=== PATIENT | female | born 1995 | race African-American/Black ===

== ENCOUNTER 2017-09-30 14:06 | Emergency (ER) | payer SELFPAY ==
[~2017-09-30] VITALS: Ht 175.3 cm; Wt 98.9 kg
[2017-09-30 15:19] LABS: ABSOLUTE BASOPHIL COUNT 0.1 /CUMM (0.0-0.2); ABSOLUTE EOSINOPHIL COUNT 0.1 /CUMM (0.0-0.7); ABSOLUTE GRANULOCYTE CT 4.8 /CUMM (1.4-6.5); ABSOLUTE LYMPH COUNT 2.3 /CUMM (1.2-3.4); ABSOLUTE MONOCYTE COUNT 0.6 /CUMM (0.10-0.60); BASOPHIL % 0.9 % (0.0-2.0); EOSINOPHIL % 1.6 % (0-5); GRANULOCYTE % 60.7 % (42.2-75.2); HEMATOCRIT 39.4 % (37-47); MEAN CORPUSCULAR HGB 28.3 PG (27.0-31.0); MEAN CORPUSCULAR HGB CONC 32.5 G/DL (33.0-37.0); MEAN CORPUSCULAR VOLUME 87.1 FL (81.0-99.0); MEAN PLATELET VOLUME 6.9 FL (7.4-10.4); PLATELET COUNT 371 /CUMM (130-400); RBC DISTRIBUTION WIDTH 14.1 % (11.5-14.5); RED BLOOD CELL CT 4.52 /CUMM (4.20-5.40); WHITE BLOOD CELL COUNT 7.8 /CUMM (4.8-10.8)
--- NOTE | 2017-09-30 15:50 | ED GI/GU/ABDOMINAL COMPLAINT ---
History of Present Illness General Chief Complaint: Abdominal Pain/Flank Pain Stated Complaint: ABD PAIN SPOTING Source: patient Exam Limitations: no limitations Vital Signs & Intake/Output Vital Signs & Intake/Output Vital Signs Date Time Temp Pulse Resp B/P B/P Pulse O2 O2 Flow FiO2 Mean Ox Delivery Rate 09/30 1414 97.0 81 18 133/84 98 Room Air Allergies Coded Allergies: No Known Allergies (09/30/17) Reconcile Medications Ciprofloxacin HCl (Cipro) 500 MG TABLET 1 TAB PO BID UTI Metronidazole (Flagyl) 500 MG TABLET 1 TAB PO BID STD Triage Note: PT TO ER C/C ?STD C/C ODOR AND WHITE D/C COMING FROM VAGINA. PT HAD SPOTTING PERIOD 2 WEEKS AGO. Triage Nurses Notes Reviewed? yes ? N Is pt currently ? No Onset: Gradual Duration: constant Timing: recent history Quality/Severity: moderate Severity Numbers: 5 Radiation: no radiation HPI: Patient is a 22-year-old female who since emergency room with concerns of having unprotected sex approximately 2 weeks ago and has had a 4-5 day symptoms of dysuria and increased frequency of urination and malodorous white vaginal discharge and 1 day of mild intermittent vaginal spotting. Patient denies any fever chills abdominal pain nausea vomiting Patient does have a history of BV and states symptoms are very similar to previous episodes. Unknown partner having symptoms (Dylon Barrera) Past History Travel History Traveled to [place] past 21 day No Medical History Any Pertinent Medical History? none Surgical History Surgical History: non-contributory Psychosocial History What is your primary language Citizen Of [place] Tobacco Use: Never used Family History Hx Contributory? No (Dylon Barrera) Review of Systems Review of Systems Constitutional: Reports: no symptoms. EENTM: Reports: no symptoms. Respiratory: Reports: no symptoms. Cardiovascular: Reports: no symptoms. GI: Reports: see HPI. Denies: abdominal pain. Genitourinary: Reports: see HPI. Musculoskeletal: Reports: no symptoms. Skin: Reports: no symptoms. Neurological/Psychological: Reports: no symptoms. Hematologic/Endocrine: Reports: no symptoms. Immunologic/Allergic: Reports: no symptoms. All Other Systems: Reviewed and Negative (Dylon Barrera) Physical Exam Physical Exam General Appearance: no apparent distress, alert, comfortable Head: atraumatic Eyes: Bilateral: normal appearance. Ears, Nose, Throat, Mouth: hearing grossly normal Neck: normal inspection Respiratory: no respiratory distress Gastrointestinal: normal bowel sounds, soft, non-tender Pelvic: normal external exam, normal bimanual exam, no cerv. motion tender, no masses, MILD WHITE CERVICAL DISCHARGE NONTENDER CERVIX AND BIMANUAL EXAM Extremities: normal range of motion Neurologic/Psych: no motor/sensory deficits Skin: intact, normal color Core Measures ACS in differential dx? No Sepsis Present: No Sepsis Focused Exam Completed? No (Brice DOUGLAS,Dylon) Progress Differential Diagnosis: appendicitis, ectopic , endometritis, gastritis , hepatitis, hernia, hemorrhoids, ischemic bowel, inflamm bowel dis, intrauterine , kidney stone, ovarian cyst, ovarian torsion, pancreatitis, PID/cervicitis, peptic ulcer, PUD/GERD, perforated viscous, SBO, threatened AB, UTI/pyelo Plan of Care: Orders Procedure Date/time Status TRICHOMONAS 09/30 1551 Complete POTASSIUM HYDROXIDE (FABRICIO) 09/30 1551 Complete GENITAL CULTURE 09/30 1551 Active Add-on Test (ER Only) 09/30 1550 Active Add-on Test (ER Only) 09/30 1519 Active HUMAN BETA HCG SCREEN 09/30 1511 Active Add-on Test (ER Only) 09/30 1434 Active CULTURE,URINE 09/30 1416 Active CHLAMYDIA-GC DNA PROBE 09/30 1416 Active URINE 09/30 1416 Complete URINALYSIS 09/30 1416 Complete COMPREHENSIVE METABOLIC PANEL 09/30 1416 Active CBC WITHOUT DIFFERENTIAL 09/30 1416 Complete Laboratory Tests 09/30/17 1511: Anion Gap 11, Estimated GFR > 60, BUN/Creatinine Ratio 16.3, Glucose 108 H, Calcium 9.7, Total Bilirubin 0.3, AST 18, ALT 16, Alkaline Phosphatase 67, Total Protein 7.4, Albumin 4.1, Globulin 3.3, Albumin/Globulin Ratio 1.2, Total Beta HCG Pending, CBC w Diff NO MAN DIFF REQ, RBC 4.52, MCV 87.1, MCH 28.3, MCHC 32.5 L, RDW 14.1, MPV 6.9 L, Gran % 60.7, Lymphocytes % 29.7, Monocytes % 7.1, Eosinophils % 1.6, Basophils % 0.9, Absolute Granulocytes 4.8, Absolute Lymphocytes 2.3, Absolute Monocytes 0.6, Absolute Eosinophils 0.1, Absolute Basophils 0.1 09/30/17 1427: Urinalysis LIGHT H, Urine Color YEL, Urine Clarity HAZY H, Urine pH 6.0, Ur Specific [place] 1.025, Urine Protein NEG, Urine Ketones NEG, Urine Nitrite NEG, Urine Bilirubin NEG, Urine Urobilinogen 0.2, Ur Leukocyte Esterase SMALL H, Ur Microscopic SEDIMENT EXAMINED, Urine RBC 1-3, Urine WBC 10-15 H, Ur Epithelial Cells MANY H, Urine Bacteria MANY H, Urine Hemoglobin NEG, Urine Glucose NEG, Urine Test NEGATIVE Microbiology 09/30 163 GENITAL: FABRICIO Preparation - COMP 09/30 163 GENITAL: Trichomonas Preparation - COMP 09/30 163 GENITAL: Genital Culture - RECD 09/30 141 URINE ROUT: Urine Culture - RECD 09/30 141 URINE ROUT: GC DNA Probe - RECD 09/30 141 URINE ROUT: Chlamydia DNA Probe (BINDU) - RECD Patient on initial examination was resting comfortably bedside afebrile no apparent distress nontender abdomen, no cervical motion tenderness no suspicion at this time a PID Due to patient having symptoms of UTI the patient will be treated for concerns of cystitis however culture pending Patient will also be treated for bacterial vaginosis Patient was strongly advised to follow up and establish CORE STRIPPER Upon discharge patient looks well no apparent distress afebrile and again has nontender abdomen. Initial ED EKG: none (Dylon Barrera) Departure Departure Disposition: HOME OR SELF CARE Condition: Stable Clinical Impression Primary Impression: UTI (urinary tract infection) Secondary Impressions: STD (female) Referrals: Patient Has No Primary Care Dr (PCP/Family) Louie William MD Additional Instructions: As discussed IF symptoms worsen or if YOU develop any new concerning symptom return to emergency, begin the prescription of ciprofloxacin and Flagyl as directed, prescription is awaiting at [place] [facility]. Follow up this week and establish CORE STRIPPER Dr. Hook for further evaluation and treatment. Perceptions are waiting at [facility] Departure Forms: Customer Survey General Discharge Information Prescriptions: Current Visit Scripts Ciprofloxacin HCl (Cipro) 1 TAB PO BID #14 TAB Metronidazole (Flagyl) 1 TAB PO BID #14 TAB (Dylon Barrera) PA/AWNING MAKER Co-Sign Statement Statement: ED Attending supervision documentation- x I saw and evaluated the patient. I have also reviewed all the pertinent lab results and diagnostic results. I agree with the findings and the plan of care as documented in the PA's/AWNING MAKER's documentation. [] I have reviewed the ED Record and agree with the PA's/AWNING MAKER's documentation. [] Additions or exceptions (if any) to the PAs/AWNING MAKER's note and plan are summarized below: [] (Moises GORE,Kadeem)
[2017-09-30] MEDS ORDERED: FLAGYL500 MG PO (16:53)
[2017-09-30] MEDS ORDERED: CIPRO500 M1 PO (16:53)
[2017-09-30 17:14] VITALS: BP 129/77
== END 2017-09-30 17:22 ==
LOC: ERH 14:06
PROVIDERS: Physician Assistant Medical
DX: N39.0 Urinary tract infection, site not specified (principal); A64 Unspecified sexually transmitted disease
CPT/HCPCS: 87070; 81001; 81025; 87086; 87491; 87591